=== PATIENT | male | born 1970 | race Caucasian/White ===

== ENCOUNTER 2017-07-10 12:07 | Emergency (ER) | payer MEDICAID, OTHER ==
[2017-07-10 12:45] VITALS: RESP 18; TEMP 98; O2SAT 97
[2017-07-10] MEDS ORDERED: LIDOCAINE 5% 1 EA PATCH TD ONE (13:03)
[2017-07-10] MEDS ORDERED: IBUPROFEN 600 MG TAB PO ONE (13:03)
--- NOTE | 2017-07-10 13:10 | EDPHY ---
H & P Stated Complaint: c/o lower back pain from work on [employer]. pain since then Time Seen by Provider: 07/10/17 12:36 HPI/ROS: CHIEF COMPLAINT: Low back pain HISTORY OF PRESENT ILLNESS: This is a 47-year-old male who presents with 4 days of left low back pain. This began while he was at work 4 days ago. His job involves lifting and bending and twisting. In addition, he was jumping off the back of a truck repeatedly from a height of about 3 feet. He has developed aching low back pain on the left radiating into his left hip and upper leg. The leg pain is sharp. He has not been aware of numbness or weakness. He has not had any bowel or bladder problems. He denies recent fever. He does not have a history low back pain. The pain worsened today while at work. He has been taking ibuprofen and took 800 mg this morning before going to work. REVIEW OF SYSTEMS: A ten point review of systems was performed and is negative with the exception of the items mentioned in the HPI. Past medical history: 1. Hypertension 2. Obesity 3. Allergy induced asthma For previous rib fractures Past surgical history: Appendectomy Social history: He smokes cigarettes daily. 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 He is currently staying with his mother. General Appearance: Alert. Vital signs reviewed. Blood pressure 157/67. Eyes: Pupils equal and round, no conjunctival injection, no discharge. Anicteric. Neck: Nontender to palpation over the spine in the midline. No pain with active range of motion of the neck. Respiratory: Lungs are clear to auscultation; no wheezes, rales, or rhonchi. Cardiovascular: Regular rate and rhythm; no murmur, rub, or gallop. Gastrointestinal: Abdomen is obese, soft and nontender. Skin: Warm and dry, no rashes on exposed skin, normal color. Back: Nontender to palpation over the thoracolumbar spine. No CVAT. Extremities: No lower extremity edema, no calf tenderness or swelling. Neurological: Alert and oriented. Moving all four extremities easily and equally. Negative leg raise. Strength is 5/5 in both lower extremities with testing of hip flexion, hip extension, knee flexion, knee extension, plantar flexion, dorsiflexion, and EHL. Gait is normal. Sensation is intact to light touch over both lower extremities. Deep tendon reflexes are 2+ in the knees and 1+ in the ankles bilaterally. Psychiatric: Normal affect. - Personal History Current Tetanus Diphtheria and Acellular Pertussis (TDAP): Yes Tetanus Vaccine Date: < 10 years - Medical/Surgical History Hx Asthma: Yes Hx Chronic Respiratory Disease: No Hx Diabetes: No Hx Cardiac Disease: Yes Hx Renal Disease: No Hx Cirrhosis: No Hx Alcoholism: No Hx HIV/AIDS: No Hx Splenectomy or Spleen Trauma: No Other PMH: PMH: ASTHMA,HTN. PSH: ORTHO,APPY - Social History Smoking Status: Current every day smoker Constitutional: Initial Vital Signs Temperature (C) 36.6 C 07/10/17 12:42 Heart Rate 85 07/10/17 12:42 Respiratory Rate 18 07/10/17 12:42 Blood Pressure 157/67 H 07/10/17 12:42 O2 Sat (%) 97 07/10/17 12:42 O2 Delivery Mode Room Air Allergies/Adverse Reactions: Penicillins Allergy (Intermediate, Verified 01/27/16 16:10) HIVES,LUNGS CLOSE UP Sulfa (Sulfonamide Antibiotics) [Sulfa(Sulfonamide Antibiotics)] Allergy ( Verified 01/27/16 16:10) Home Medications: Medication Instructions Recorded Cyclobenzaprine [Flexeril 10 MG 10 mg PO TID PRN #15 tab 07/10/17 (*)] Lidocaine 5% [Lidoderm 5% Patch 1 ea TD DAILY #6 patch 07/10/17 (*)] Medical Decision Making ED Course/Re-evaluation: Will obtain lumbar spine x-ray because the history of jumping repeatedly from the back of a truck. I doubt that there is a bony injury. In the emergency department a lidocaine patch will be placed. He is given another dose of ibuprofen, as he has not had any since early this morning. Xray reviewed by me and I have also reviewed the radiologist's report. No evidence of fracture. I do not suspect infection in this setting. Symptomatic treatment of back pain recommended--NSAIDs, lido patch, muscle relaxant. Danger signs reviewed. FU per his employer. He was noted to have high BP at triage, 157/67. BP at DC 126/62. I suspect that his initial hypertension was related to pain. He is advised to have BP re- checked when seen in FU. Differential Diagnosis: Back pain including but not limited to muscular pain, herniated disc, spine fracture, intra-abdominal causes and urinary tract infection. - Data Points Medications Given: Discontinued Medications Ibuprofen (Motrin) 600 mg PO EDNOW ONE Stop: 07/10/17 13:04 Last Admin: 07/10/17 13:26 Dose: 600 mg Lidocaine (Lidoderm 5%) 1 ea TD EDNOW ONE Stop: 07/10/17 13:04 Last Admin: 07/10/17 13:26 Dose: 1 ea Departure - Departure Disposition: Home, Routine, Self-Care Clinical Impression: Low back pain Qualifiers: Chronicity: acute Back pain laterality: left Sciatica presence: without sciatica Qualified Code(s): M54.5 - Low back pain Condition: Good Instructions: Acute Low Back Pain (ED) Additional Instructions: Most likely your employer will want you to see a workman's compensation physician. I am recommending continued ibuprofen 600 mg every 6-8 hours. Take this with food. You can also take tylenol 650 mg every four hours. Do not take more than 3000 mg of tylenol in a 24 hour time period. Use the lidocaine 5% patches on your back as needed for pain. A patch can stay on for twelve hours--then go without for 12 hours. Take the muscle relaxant, flexeril, as needed for pain/muscle spasm. This medication will make you drowsy and uncoordinated so you cannot take it if driving or operating machinery. Referrals: Work Comp Ref/Restrictions [Outside] - As per Instructions Prescriptions: Cyclobenzaprine [Flexeril 10 MG (*)] 10 mg PO TID PRN #15 tab PRN Reason: Spasms Lidocaine 5% [Lidoderm 5% Patch (*)] 1 ea TD DAILY #6 patch
[2017-07-10 14:13] VITALS: BP 126/62; PULSE 74
[2017-07-10] MEDS ORDERED: PATCH REMOVAL 1 EA PATCH TD SCH (21:00)
== END 2017-07-10 14:11 | disposition home or self-care (01) ==
LOC: CED 12:07
DX: S39.92XA Unspecified injury of lower back, initial encounter (principal); I10 Essential (primary) hypertension; J45.909 Unspecified asthma, uncomplicated; F17.200 Nicotine dependence, unspecified, uncomplicated; X50.0XXA Overexertion from strenuous movement or load, initial encounter; Y92.69 Other specified industrial and construction area as the place of occurrence of the external cause; Y99.0 Civilian activity done for income or pay; Y93.39 Activity, other involving climbing, rappelling and jumping off
CPT/HCPCS: 72100-PO

== ENCOUNTER 2018-11-26 12:35 | Emergency (ER) | payer OTHER | END 2018-11-26 16:30 | disposition home or self-care (01) | LOC: CED 12:35 ==